=== PATIENT | male | born 1975 | race Caucasian/White ===

== ENCOUNTER 2019-03-28 08:36 | Day surgery (SDC) | payer BC, SELFPAY ==
[2019-03-27 11:01] VITALS: BMI 29.2
--- NOTE | 2019-03-28 09:29 | ANES.PREANES ---
Pre-Anesthetic Assessment Pre-Anesthetic Assessment: Height/Weight: Height 1.88 m Weight 103.192 kg Preop Diagnosis: dysphagia Proposed Procedure: Operation Date: 03/28/19 09:30 Proposed Procedures p EGD(Not Applicable) - Ronald Baltazar MD Was Beta Sandy taken within 24 hours: N/A Last intake: Intake Last Liquid Date 03/27/19 Last Liquid Time 21:00 Last Solid Date 03/27/19 Last Solid Time 21:00 Last Intake: 21:00 Social: Social History: No alcohol and No tobacco Exam: Pre-Anes Outpt Exam: alert, oriented x 3, clear to auscultation bilaterally and regular rate & rhythm Airway: Submandibular: WNL Cervical ROM: WNL MP: 2 Pulmonary: Pulmonary: None reported CV/HEM: CV/HEM: None reported : : None reported Hepatic: Hepatic: None reported GI: GI: GERD Metabolic: Metabolic: None reported Musc/skel: Musc/skel: None reported Neuropsych: Neuropsych: None reported Anesthetic Plan: ASA status: I Anesthesia: Anesthesia Evaluation and MAC Risk of > 500 ml blood loss (7ml/kg in children): No PFSH Anesthesia PFSH: Family History (Updated 03/27/19 @ 10:46 by Haven Lala LPN) Mother Multiple sclerosis Sister Hodgkin disease Social History (Updated 03/27/19 @ 10:48 by Haven Lala LPN) Smoking and tobacco status: never smoked Alcohol intake: never Substance/Drug Use: never Data Anesthesia Cardiac Studies: No Data to Display
[2019-03-28] MEDS: sodium chloride 0.9% 1,000 ML 30 ML (09:33)
[2019-03-28 09:36] VITALS: BP 123/66; PULSE 81; RESP 18; TEMP 37; O2SAT 96
--- NOTE | 2019-03-28 09:48 | PM.HPUD ---
H&P update H&P Update: DATE OF SURGERY/PROCEDURE: 03/28/19 DATE H&P PERFORMED: 03/06/19 H&P UPDATE INFORMATION: H&P completed within last 30 days PLANNED PROCEDURE: Operation Date: 03/28/19 09:30 Proposed Procedures p EGD(Not Applicable) - Ronald Baltazar MD Full H&P Perinent History: Family History: Family History (Updated 03/27/19 @ 10:46 by Haven Lala LPN) Mother Multiple sclerosis Sister Hodgkin disease Social History: Social History Smoking and tobacco status: never smoked Alcohol intake: never Substance/Drug Use: never
[2019-03-28 10:04] VITALS: BP 126/91; PULSE 82; RESP 16; TEMP 36.6; O2SAT 97
--- NOTE | 2019-03-28 10:07 | SUR.OPER ---
DOCTOR USED A 50 BOUGIE FOR DILATION ON THE PATIENT.
[2019-03-28 10:17] VITALS: BP 121/75; PULSE 74; RESP 18; TEMP -71.9; TEMP -97.5; O2SAT 99
--- NOTE | 2019-03-28 10:21 | ANE.PACU ---
 Inpatient post-anesthesia follow up: Airway intact: Yes Vital signs: Temperature -97.5 F Pulse Rate [Left A pical] 74 Respiratory Rate 18 Blood Pressure [Le ft Arm] 121/75 Pulse Oximetry 99 Oxygen Delivery Me thod Room Air Oxygen Flow Rate 3 Fraction of Inspir ed Oxygen Hydration adequate: Yes Nausea and vomiting: No Pain level: 1 Mental status: Baseline
== END 2019-04-01 10:30 | disposition home or self-care (01) ==
PROVIDERS: Family Provider General Practice; PCP Family Medicine; Visit Provider Internal Medicine
PROC: 0DJ08ZZ Inspection of Upper Intestinal Tract, Via Natural or Artificial Opening Endoscopic (ICD-10-PCS; CPT 43235; principal; 2019-03-28 09:30)
DX: K22.2 Esophageal obstruction (principal); R13.10 Dysphagia, unspecified
CPT/HCPCS: 43213; 43235; J0171; J2001; J2704; J7030

== ENCOUNTER → 2019-10-30 14:48 | Outpatient (BNVA) | payer BC, SELFPAY | PROVIDERS: Family Provider General Practice; PCP Family Medicine; Visit Provider Podiatrist Foot & Ankle Surgery | DX: M79.671 Pain in right foot (principal) | CPT/HCPCS: 73630 ==

== ENCOUNTER → 2023-08-02 13:57 | Outpatient (BNVA) | payer OTHER, SELFPAY | PROVIDERS: Family Provider General Practice; PCP Family Medicine; Visit Provider Podiatrist Foot & Ankle Surgery | DX: M25.571 Pain in right ankle and joints of right foot (principal); M76.61 Achilles tendinitis, right leg | CPT/HCPCS: 73610 ==